=== PATIENT | male | born 1990 | race Caucasian/White ===

== ENCOUNTER 2017-12-28 08:24 | Emergency (ER) | payer MEDICAID ==
[~2017-12-28 08:24] MED LIST: BENZ1TAB61 PO; BENZ2TAB6 PO; FLUO40CA2 PO; HALO5AMP3 PO; IBUP-1223; LURA60TA PO; OLAN20TA7 PO; PENI500T; TRAZ150T62 PO; ZIPR20CA2 PO; ZIPR80CA3 PO
== END 2017-12-28 08:58 | disposition home or self-care (01) ==
LOC: ED 08:52
DX: F99 Mental disorder, not otherwise specified (principal); Z53.21 Procedure and treatment not carried out due to patient leaving prior to being seen by health care provider